=== PATIENT | male | born 1950 ===

== ENCOUNTER 2016-05-30 22:00 | Emergency (ER) | payer OTHER, MEDICARE ==
[~2016-05-30] VITALS: Ht 177.8 cm; Wt 72.6 kg
--- NOTE | 2016-05-30 22:19 | ED GENERAL ADULT ---
History of Present Illness General Chief Complaint: Fall Stated Complaint: BIBA, FALL, +ETOH Source: patient, old records, EMS Exam Limitations: intoxication Vital Signs & Intake/Output Vital Signs & Intake/Output Vital Signs Date Time Temp Pulse Resp B/P B/P Pulse O2 O2 Flow FiO2 Mean Ox Delivery Rate 05/31 0137 97.3 80 16 117/68 93 Room Air 05/31 0018 97.4 92 17 123/80 05/30 2348 97.4 92 17 123/80 96 Room Air 05/30 2218 96.5 88 17 122/80 05/30 2204 96.5 88 17 122/80 90 Room Air ED Intake and Output 05/31 0000 05/30 1200 Intake Total Output Total Balance Patient 160 lb Weight Weight Estimated Measurement Method Triage Note: PT BIBA, PER PT SON PT HAD 18 BEERS TODAY, PT WAS SITTING IN BED, FELL ONTO FLOOR AND WAS SITTING THERE. -HEADSTRIKE, -LOC. PT ARRIVES WITH C-COLLAR ON. PT HAS SLURRED SPEECH AND IS MUTTERING. PT SON INQUIRED ABOUT ALCOHOL DETOX PER EMS. Triage Nurses Notes Reviewed? yes HPI: Patient's son called EMS after the patient had slid out of bed onto the floor. Patient had been drinking all day. Patient's son states that the patient is chronic alcoholic and wants detox. Patient was found by EMS at the side of the bed. Patient has no current complaints however he is intoxicated and is slurring his words on the right any history. Past History Travel History Traveled to [place] past 21 day No Medical History Any Pertinent Medical History? see below for history Psychiatric: alcohol dependence Surgical History Surgical History: non-contributory Psychosocial History Tobacco Use: Cognitive Impairment ETOH Use: alcoholic Illicit Drug Use: denies illicit drug use Family History Hx Contributory? No Review of Systems Review of Systems Constitutional: Reports: no symptoms. EENTM: Reports: no symptoms. Respiratory: Reports: no symptoms. Cardiovascular: Reports: no symptoms. GI: Reports: no symptoms. Genitourinary: Reports: no symptoms. Musculoskeletal: Reports: no symptoms. Skin: Reports: no symptoms. Neurological/Psychological: Reports: no symptoms. Hematologic/Endocrine: Reports: no symptoms. Immunologic/Allergic: Reports: no symptoms. All Other Systems: Reviewed and Negative Physical Exam Physical Exam General Appearance: well developed/nourished, awake, intoxicated Head: atraumatic, normal appearance Eyes: Bilateral: PERRL, EOMI, other (SLUGGISH). Ears, Nose, Throat: normal pharynx, normal ENT inspection Neck: normal inspection, supple, full range of motion Respiratory: normal breath sounds, chest non-tender, no respiratory distress, lungs clear Cardiovascular: regular rate/rhythm, normal peripheral pulses Gastrointestinal: normal bowel sounds, soft, non-tender, no organomegaly Back: normal inspection, normal range of motion Extremities: normal inspection, normal capillary refill, normal range of motion, no edema Neurologic/Psych: awake, SLURRING WORDS Skin: intact, normal color, warm/dry Lymphatic: no anterior cervical sherri Core Measures ACS in differential dx? No CVA/TIA Diagnosis: No Severe Sepsis Present: No Septic Shock Present: No Progress Differential Diagnoses I considered the following diagnoses in my evaluation of the patient: [Head injury, cervical spine injury, alcohol intoxication, electrolyte abnormality] Plan of Care: Orders Procedure Date/time Status CIWA 05/30 2217 Active ETHANOL 05/30 2217 Complete COMPREHENSIVE METABOLIC PANEL 05/30 2217 Complete CBC WITHOUT DIFFERENTIAL 05/30 2217 Complete EKG 05/30 2217 Active Laboratory Tests 05/30/16 2249: Anion Gap 16, Estimated GFR > 60, BUN/Creatinine Ratio 10.0, Glucose 120 H, Calcium 8.6, Total Bilirubin 0.5, AST 18, ALT 29, Alkaline Phosphatase 82, Total Protein 7.9, Albumin 3.9, Globulin 4.0, Albumin/Globulin Ratio 1.0 L, CBC w Diff NO MAN DIFF REQ, RBC 4.80, MCV 85.8, MCH 28.3, RDW 14.8 H, MPV 7.7, Gran % 49.3, Lymphocytes % 39.9, Monocytes % 7.9, Eosinophils % 2.1, Basophils % 0.8, Absolute Granulocytes 3.3, Absolute Lymphocytes 2.7, Absolute Monocytes 0.5, Absolute Eosinophils 0.1, Absolute Basophils 0.1, PUBS MCHC 33.0, Serum Alcohol 206.0 Diagnostic Imaging: Viewed by Me: CT Scan. Discussed w/RAD: CT Scan. Radiology Impression: PATIENT: MARCELA PÉREZ PRESENT AGE: 65 PATIENT ACCOUNT NO: [id number] : 48 LOCATION: [facility] ORDERING PHYSICIAN: SHALOM SKY MD SERVICE DATE: 05/30/16 EXAM TYPE: CAT - CT CERV SPINE WO IV CONTRAST; CT HEAD WO IV CONTRAST EXAMINATION: NONCONTRAST HEAD CT NONCONTRAST CERVICAL SPINE CT INDICATION INFORMATION: Fall out of bed. EtOH. COMPARISON: None TECHNIQUE: Separate noncontrast CT examinations of the head and cervical spine were performed. Coronal and sagittal images were created for each examination at the technologist workstation. FINDINGS: Head: Multiple repeated acquisitions were performed as there was significant motion on initial imaging. There is no evidence of acute intracranial hemorrhage or territorial infarction. Areas of subtle hyperattenuation adjacent to the temporal horns of the lateral ventricles bilaterally are likely artifactual. There is significant artifact on both acquisitions at this location. No abnormal mass effect or midline shift is seen. Mcelroy to white matter differentiation is well preserved. No extra-axial fluid collections are identified. No hydrocephalus. Proportional prominence of the ventricles and sulcal spaces is consistent with mild volume loss. There is no abnormal attenuation within the brain parenchyma. The osseous structures and soft tissues are normal. Mild opacification of the bilateral maxillary sinuses and ethmoid air cells. Minimal opacification of the right mastoid air cells. Cervical spine: There is no acute fracture or subluxation. Grade 1 retrolisthesis is seen at multiple levels, C3-C4, C4-C5, C5-C6, and C6-C7. Multilevel facet arthropathy with disc space narrowing and prominent endplate osteophyte formation. Multiple lucencies are seen throughout the vertebral bodies which could represent endplate cysts. The posterior elements are appropriately aligned. The atlantoaxial and atlantooccipital articulations are intact. No prevertebral soft tissue swelling. Visualized portions of the lung apices are unremarkable. The thyroid gland is unremarkable. IMPRESSION: Motion limited examination. No acute intracranial findings. No acute fracture or malalignment of the cervical spine. Moderate degenerative changes. DICTATED BY: DEBRA BROWNING MD DATE/TIME DICTATED:05/30/162256 GUN FITTER: KATARINA DATE/TIME TRANSCRIBED:05/30/162256 CONFIDENTIAL, DO NOT COPY WITHOUT APPROPRIATE AUTHORIZATION. <Electronically signed in Other Vendor System> SIGNED BY: DEBRA BROWNING MD 05/30/16 9570 Initial ED EKG: NSR, RBBB, nonspecific ST T wave chg Departure Departure Disposition: HOME OR SELF CARE Condition: Stable Clinical Impression Primary Impression: Alcohol dependency Secondary Impressions: Alcohol intoxication Referrals: UNKNOWN (PCP/Family) Additional Instructions: RETURN IF WE CAN HELP YOU TO STOP DRINKING RETURN FOR ANY CONCERNS Departure Forms: Customer Survey General Discharge Information Critical Care Note Critical Care Note Critical Care Time: non-applicable
[2016-05-30 22:53] LABS: ABSOLUTE BASOPHIL COUNT 0.1 /CUMM (0.0-0.2); ABSOLUTE EOSINOPHIL COUNT 0.1 /CUMM (0.0-0.7); ABSOLUTE GRANULOCYTE CT 3.3 /CUMM (1.4-6.5); ABSOLUTE LYMPH COUNT 2.7 /CUMM (1.2-3.4); ABSOLUTE MONOCYTE COUNT 0.5 /CUMM (0.10-0.60); BASOPHIL % 0.8 % (0.0-2.0); EOSINOPHIL % 2.1 % (0-5); GRANULOCYTE % 49.3 % (42.2-75.2); HEMATOCRIT 41.2 % (42-52); MEAN CORPUSCULAR HGB 28.3 PG (27.0-31.0); MEAN CORPUSCULAR VOLUME 85.8 FL (80.0-94.0); MEAN PLATELET VOLUME 7.7 FL (7.4-10.4); PLATELET COUNT 231 /CUMM (130-400); RBC DISTRIBUTION WIDTH 14.8 % (11.5-14.5); WHITE BLOOD CELL COUNT 6.7 /CUMM (4.8-10.8)
--- NOTE | 2016-05-30 23:09 | CT SCAN REPORT ---
EXAMINATION: NONCONTRAST HEAD CT NONCONTRAST CERVICAL SPINE CT INDICATION INFORMATION: Fall out of bed. EtOH. COMPARISON: None TECHNIQUE: Separate noncontrast CT examinations of the head and cervical spine were performed. Coronal and sagittal images were created for each examination at the technologist workstation. FINDINGS: Head: Multiple repeated acquisitions were performed as there was significant motion on initial imaging. There is no evidence of acute intracranial hemorrhage or territorial infarction. Areas of subtle hyperattenuation adjacent to the temporal horns of the lateral ventricles bilaterally are likely artifactual. There is significant artifact on both acquisitions at this location. No abnormal mass effect or midline shift is seen. Mcelroy to white matter differentiation is well preserved. No extra-axial fluid collections are identified. No hydrocephalus. Proportional prominence of the ventricles and sulcal spaces is consistent with mild volume loss. There is no abnormal attenuation within the brain parenchyma. The osseous structures and soft tissues are normal. Mild opacification of the bilateral maxillary sinuses and ethmoid air cells. Minimal opacification of the right mastoid air cells. Cervical spine: There is no acute fracture or subluxation. Grade 1 retrolisthesis is seen at multiple levels, C3-C4, C4-C5, C5-C6, and C6-C7. Multilevel facet arthropathy with disc space narrowing and prominent endplate osteophyte formation. Multiple lucencies are seen throughout the vertebral bodies which could represent endplate cysts. The posterior elements are appropriately aligned. The atlantoaxial and atlantooccipital articulations are intact. No prevertebral soft tissue swelling. Visualized portions of the lung apices are unremarkable. The thyroid gland is unremarkable. IMPRESSION: Motion limited examination. No acute intracranial findings. No acute fracture or malalignment of the cervical spine. Moderate degenerative changes.
[2016-05-31 02:18] VITALS: BP 117/68
== END 2016-05-31 02:45 ==
LOC: ERH 22:00
PROVIDERS: Emergency Medicine
DX: F10.229 Alcohol dependence with intoxication, unspecified (principal)
CPT/HCPCS: 93005; 93010; G0480